=== PATIENT | female | born 1940 | race Caucasian/White ===

== ENCOUNTER 2016-05-23 10:58 | Outpatient (CLI) | payer MEDICARE, OTHER | END 2016-05-23 10:59 | disposition home or self-care (01) | DX: M25.552 Pain in left hip (principal); M16.0 Bilateral primary osteoarthritis of hip ==

== ENCOUNTER 2016-12-12 15:20 | Outpatient (CLI) | payer MEDICARE, OTHER ==
[2016-12-12 14:10] LABS: BASOPHILS % (AUTO) 0.7 %; EOSINOPHILS # (AUTO) 0.1 10^3/uL (0.0-0.7); EOSINOPHILS % (AUTO) 1.3 %; HCT - HEMATOCRIT 42.6 % (37.0-47.0); HGB - HEMOGLOBIN 14.3 g/dL (12.0-16.0); LYMPHOCYTES % (AUTO) 23.4 %; MEAN CORPUSCULAR HEMOGLOBIN 30.2 pg (27.0-31.0); MEAN CORPUSCULAR HGB CONC 33.5 g/dL (32.0-36.0); MEAN CORPUSCULAR VOLUME 90.2 fL (81.0-99.0); MEAN PLATELET VOLUME 9.8 fL (7.9-10.8); MONOCYTES # (AUTO) 0.4 10^3/uL (0.0-1.0); MONOCYTES % (AUTO) 8.9 %; NEUTROPHILS # (AUTO) 2.7 10^3/uL (1.5-6.6); NEUTROPHILS % (AUTO) 65.7 %; RED BLOOD COUNT 4.73 10^6/uL (4.20-5.40); RED CELL DISTRIBUTION WIDTH 13.7 % (12.0-15.0); UNCORRECTED WHITE BLOOD COUNT 4.1 x10^3/uL; WHITE BLOOD COUNT 4.1 x10^3/uL (4.8-10.8)
[2016-12-12 14:51] LABS: ALBUMIN/GLOBULIN RATIO 1.7 (1.0-2.2); BILIRUBIN,TOTAL 0.6 mg/dL (0.2-1.0); BUN - BLOOD UREA NITROGEN 12 mg/dL (6-20); CALCIUM 8.8 mg/dL (8.5-10.3); CARBON DIOXIDE - CO2 31 mmol/L (21-32); CHLORIDE 100 mmol/L (101-111); CHOL/HDL RATIO 3.1 (<4.4); CHOLESTEROL 238 mg/dL; CREATININE 0.7 mg/dL (0.4-1.0); GFR - MDRD 82 (>89); GLUCOSE 106 mg/dL (70-100); HDL CHOLESTEROL 76 mg/dL; LDL/HDL RATIO 1.9 (<4.4); POTASSIUM 3.8 mmol/L (3.5-5.0); SODIUM 137 mmol/L (135-145); TOTAL PROTEIN 6.7 g/dL (6.7-8.2); TRIGLYCERIDES 76 mg/dL; VLDL CHOLESTEROL 15 mg/dL
== END 2016-12-12 15:21 | disposition home or self-care (01) ==
LOC: LAB.WCP 15:20
PROVIDERS: ATTEND Family Medicine
DX: E78.5 Hyperlipidemia, unspecified (principal)
CPT/HCPCS: 36415; 80053; 80061; 85025

== ENCOUNTER 2016-12-17 10:34 | Outpatient (CLI) | payer MEDICARE, OTHER ==
--- NOTE | 2016-12-17 15:02 | DEXA Report ---
DEXA SCAN: 12/17/2016 CLINICAL INDICATION: Osteoporosis. TECHNIQUE: Dual energy x-ray absorptiometry (DXA) was performed on a [employer] system. Regions measured are the AP spine, femoral neck, and, if needed, forearm. COMPARISON: None. In accordance with the International Society for Clinical Densitometry (ISCD) guidelines, data from previous exams may be reanalyzed using current recommendations and techniques. This is done to allow a more accurate basis for comparison with the current study. FINDINGS The data for the lumbar spine is as follows: REGION BMD (g/cm/cm) T-SCORE Z-SCORE L1 0.744 -3.2 -0.7 L2 0.826 -3.1 -0.6 L3 0.880 -2.7 -0.2 L4 0.818 -3.2 -0.7 TOTAL 0.847 -2.9 -0.5 NOTE: All evaluable vertebrae are used for classification. The data for the hip is as follows: REGION BMD (g/cm/cm) T-SCORE Z-SCORE Neck 0.651 -2.8 -0.4 TOTAL 0.608 -3.2 -0.9 IMPRESSION: THE WHO CLASSIFICATION BASED ON THE INTERNATIONAL REFERENCE STANDARD IS OSTEOPOROSIS. THE FRACTURE RISK IS HIGH. RECOMMENDATION: Patients with diagnosis of osteoporosis or osteopenia should have regular bone mineral density assessment. For those eligible for Medicare, routine testing is allowed once every 2 years. Testing frequency can be increased for patients who have rapidly progressing disease or for those who are receiving medical therapy to restore bone mass. COMMENT: World Health Organization (WHO) definitions for osteoporosis and osteopenia: NORMAL BMD: T-score at -1.0 or higher, fracture risk is low. OSTEOPENIA BMD: T-score between -1.0 and -2.5, fracture risk is increased. OSTEOPOROSIS BMD: T-score at -2.5 or lower, fracture risk high. National Osteoporosis Foundation recommends: 1. Obtain adequate dietary calcium (at least 1200 mg per day) and vitamin D (400 -800 international units per day). 2. Participate, as appropriate, in regular weightbearing and muscle- strengthening exercise. 3. Avoid tobacco use and reduce alcohol and caffeine intake. 4. For more detailed information see the website at www.NOF.org. MTDD
== END 2016-12-17 10:35 | disposition home or self-care (01) ==
LOC: DI 10:34
PROVIDERS: ATTEND Family Medicine
DX: M81.0 Age-related osteoporosis without current pathological fracture (principal)
CPT/HCPCS: 77080

== ENCOUNTER 2016-12-17 10:34 | Outpatient (CLI) | payer MEDICARE, OTHER ==
--- NOTE | 2016-12-18 16:53 | Mammography Report ---
DIGITAL SCREENING MAMMOGRAM: 12/17/2016 CLINICAL INDICATION: A 76-year-old for screening. COMPARISON: 11/2015, 11/2014, 11/2013, 11/2012, 09/2011, 09/2010, 09/2009. TECHNIQUE: Routine CC and MLO projections as well as bilateral laterally exaggerated craniocaudal vi ews were obtained of the breasts. The breasts again demonstrate scattered fibroglandular densities bilaterally. Coarse and punctate, t ypically benign calcifications are present. No suspicious masses, clustered microcalcifications, or regions of architectural distortion are identified. IMPRESSION: BENIGN FINDINGS. RECOMMENDATION: ROUTINE ANNUAL SCREENING UNLESS OTHERWISE CLINICALLY INDICATED. BIRADS CATEGORY: 2, BENIGN FINDINGS. STANDARD QUALIFYING STATEMENTS 1. This examination was reviewed with the aid of Computed-Aided Detection (CAD). 2. A negative or benign imaging report should not delay biopsy if clinically suspicious findings are present. Consider surgical consultation if warranted. More than 5% of cancers are not identified b y imaging. 3. Dense breasts may obscure an underlying neoplasm. JOB #: [id number] EXT JOB #:[id number]
== END 2016-12-17 10:35 | disposition home or self-care (01) ==
LOC: DI 10:34
PROVIDERS: ATTEND Family Medicine
DX: Z12.31 Encounter for screening mammogram for malignant neoplasm of breast (principal)
CPT/HCPCS: 77067

== ENCOUNTER 2017-10-12 08:00 | Outpatient (CLI) | payer MEDICARE, OTHER ==
[2017-10-12 13:28] LABS: BASOPHILS % (AUTO) 0.7 %; EOSINOPHILS # (AUTO) 0.1 10^3/uL (0.0-0.7); EOSINOPHILS % (AUTO) 1.9 %; HGB - HEMOGLOBIN 13.5 g/dL (12.0-16.0); MEAN CORPUSCULAR HEMOGLOBIN 30.8 pg (27.0-31.0); MEAN CORPUSCULAR HGB CONC 33.7 g/dL (32.0-36.0); MEAN CORPUSCULAR VOLUME 91.3 fL (81.0-99.0); MEAN PLATELET VOLUME 10.1 fL (7.9-10.8); MONOCYTES # (AUTO) 0.4 10^3/uL (0.0-1.0); MONOCYTES % (AUTO) 9.7 %; NEUTROPHILS # (AUTO) 2.9 10^3/uL (1.5-6.6); NEUTROPHILS % (AUTO) 64.7 %; PLT - PLATELET COUNT 274 10^3/uL (130-450); RED BLOOD COUNT 4.38 10^6/uL (4.20-5.40); RED CELL DISTRIBUTION WIDTH 13.5 % (12.0-15.0); WHITE BLOOD COUNT 4.5 x10^3/uL (4.8-10.8)
[2017-10-12 13:41] LABS: ALBUMIN/GLOBULIN RATIO 1.5 (1.0-2.2); ALKALINE PHOSPHATASE 81 IU/L (42-121); ALT ALANINE AMINOTRANSFERASE 18 IU/L (10-60); AST ASPARTATE AMINOTRANSFERASE 21 IU/L (10-42); BILIRUBIN,TOTAL 0.7 mg/dL (0.2-1.0); BUN - BLOOD UREA NITROGEN 18 mg/dL (6-20); CALCIUM 9.7 mg/dL (8.5-10.3); CARBON DIOXIDE - CO2 32 mmol/L (21-32); CHLORIDE 97 mmol/L (101-111); CHOLESTEROL 241 mg/dL; CREATININE 0.8 mg/dL (0.4-1.0); GFR - MDRD 70 (>89); GLUCOSE 94 mg/dL (70-100); HDL CHOLESTEROL 80 mg/dL; LDL CHOLESTEROL,CALCULATED 147 mg/dL; LDL/HDL RATIO 1.8 (<4.4); SODIUM 139 mmol/L (135-145); TOTAL PROTEIN 6.7 g/dL (6.7-8.2); VLDL CHOLESTEROL 14 mg/dL
== END 2017-10-12 08:01 | disposition home or self-care (01) ==
LOC: LAB.WCP 08:00
PROVIDERS: ATTEND Family Medicine
DX: E78.5 Hyperlipidemia, unspecified (principal); R03.0 Elevated blood-pressure reading, without diagnosis of hypertension
CPT/HCPCS: 36415; 80053; 80061; 83721; 85025

== ENCOUNTER 2017-12-18 11:55 | Outpatient (CLI) | payer MEDICARE, OTHER ==
--- NOTE | 2017-12-21 10:44 | Mammography Report ---
Reason: SCREENING MAMMO Procedure Date: 12/18/2017 Accession Number: [id number] / [id number] Procedure: MGN - Screening Mammo Dig Bilat CPT Code: FULL RESULT: EXAM: Screening Mammo Dig Bilat DATE: 12/18/2017 12:20 PM CLINICAL HISTORY: 77-year-old female presents for screening mammogram. TECHNIQUE: Bilateral CC, laterally exaggerated CC, MLO views were obtained. COMPARISON: 12/17/2016, 12/14/2015, 12/06/2014, 12/02/2013. FINDINGS: The breasts demonstrate heterogeneously dense fibroglandular parenchyma bilaterally. Typically benign vascular calcifications are again seen bilaterally. Large rodlike typically benign calcifications in the left breast of increased. The left MLO view is technically insufficient as the inferior breast fold is excluded and the nipple is not in profile. This view should be repeated. No suspicious masses, clustered microcalcifications, or regions of architectural distortion are identified. IMPRESSION: Incomplete examination RECOMMENDATION: Additional evaluation as above. BIRADS CATEGORY 0: Incomplete examination STANDARD QUALIFYING STATEMENTS: 1. This examination was not reviewed with the aid of Computer-Aided Detection (CAD). 2. A negative or benign imaging report should not delay biopsy if clinically suspicious findings are present. Consider surgical consultation if warrented. More than 5% of cancers are not identified by imaging. 3. Dense breasts may obscure an underlying neoplasm. 4. This examination was reviewed without the aid of 3D breast imaging (tomosynthesis).
== END 2017-12-18 11:56 | disposition home or self-care (01) ==
LOC: DI.N 11:55
DX: Z12.31 Encounter for screening mammogram for malignant neoplasm of breast (principal); R92.8 Other abnormal and inconclusive findings on diagnostic imaging of breast
CPT/HCPCS: 77067

== ENCOUNTER 2017-12-28 12:45 | Outpatient (CLI) | payer MEDICARE, OTHER | END 2017-12-28 12:46 | disposition home or self-care (01) | LOC: DI 12:45 | DX: Z12.31 Encounter for screening mammogram for malignant neoplasm of breast (principal) | CPT/HCPCS: 77067 ==

== ENCOUNTER 2018-04-23 08:00 | Outpatient (CLI) | payer MEDICARE, OTHER ==
[2018-04-23 13:56] LABS: BASOPHILS % (AUTO) 0.6 %; EOSINOPHILS # (AUTO) 0.1 10^3/uL (0.0-0.7); EOSINOPHILS % (AUTO) 3.2 %; HGB - HEMOGLOBIN 13.6 g/dL (12.0-16.0); LYMPHOCYTES # (AUTO) 0.8 10^3/uL (1.5-3.5); LYMPHOCYTES % (AUTO) 18.5 %; MEAN CORPUSCULAR HGB CONC 34.1 g/dL (32.0-36.0); MEAN PLATELET VOLUME 10.4 fL (7.9-10.8); MONOCYTES # (AUTO) 0.5 10^3/uL (0.0-1.0); MONOCYTES % (AUTO) 10.4 %; NEUTROPHILS # (AUTO) 3.1 10^3/uL (1.5-6.6); NEUTROPHILS % (AUTO) 67.3 %; PLT - PLATELET COUNT 238 10^3/uL (130-450); RED CELL DISTRIBUTION WIDTH 13.9 % (12.0-15.0); WHITE BLOOD COUNT 4.6 x10^3/uL (4.8-10.8)
[2018-04-23 14:08] LABS: ALBUMIN 3.9 g/dL (3.2-5.5); ALBUMIN/GLOBULIN RATIO 1.6 (1.0-2.2); ALKALINE PHOSPHATASE 70 IU/L (42-121); ALT ALANINE AMINOTRANSFERASE 19 IU/L (10-60); AST ASPARTATE AMINOTRANSFERASE 21 IU/L (10-42); BILIRUBIN,TOTAL 0.5 mg/dL (0.2-1.0); BUN - BLOOD UREA NITROGEN 18 mg/dL (6-20); CALCIUM 9.4 mg/dL (8.5-10.3); CARBON DIOXIDE - CO2 29 mmol/L (21-32); CHLORIDE 96 mmol/L (101-111); CHOL/HDL RATIO 2.9 (<4.4); CHOLESTEROL 226 mg/dL; CREATININE 0.8 mg/dL (0.4-1.0); GFR - MDRD 70 (>89); GLUCOSE 92 mg/dL (70-100); HDL CHOLESTEROL 79 mg/dL; LDL CHOLESTEROL,CALCULATED 133 mg/dL; LDL/HDL RATIO 1.7 (<4.4); SODIUM 137 mmol/L (135-145); TOTAL PROTEIN 6.4 g/dL (6.7-8.2); VLDL CHOLESTEROL 14 mg/dL
== END 2018-04-23 23:59 | disposition home or self-care (01) ==
LOC: LAB.WCP 08:00
PROVIDERS: ATTEND Family Medicine
DX: E78.5 Hyperlipidemia, unspecified (principal); R03.0 Elevated blood-pressure reading, without diagnosis of hypertension
CPT/HCPCS: 36415; 80053; 80061; 83721; 85025

== ENCOUNTER 2018-07-13 16:25 | Outpatient (CLI) | payer MEDICARE, OTHER ==
--- NOTE | 2018-07-13 21:49 | Ultrasound Report ---
Reason: RAYNAUD'S SYNDROME Procedure Date: 07/13/2018 Accession Number: [id number] / [id number] Procedure: US - Ankle Brachial Index CPT Code: FULL RESULT: EXAM: BILATERAL ANKLE/BRACHIAL INDEX EXAM DATE: 07/13/2018 05:14 PM. CLINICAL HISTORY: RAYNAUD SYNDROME. COMPARISON: None. TECHNIQUE: A blood pressure cuff and pulse volume recording Doppler ultrasound was used to evaluate the arterial pressures in the arms and ankle. No images were acquired. FINDINGS: Brachial pressure: Right brachial artery: 187 mmHg, index 1.00 Left brachial artery: 170 mmHg, index 1.00 Right ankle pressures: 189 mmHg, index 1.0 Left ankle pressures: 180 mmHg, index 1.06 IMPRESSION: 1. Right ankle/brachial index: 1.0. 2. Left ankle/brachial index: 1.06. ANKLE/BRACHIAL INDEX REFERENCE STANDARDS 1.0-1.4: Normal 0.90-0.99: Borderline < 0.9: Abnormal RADIA
== END 2018-07-13 16:26 | disposition home or self-care (01) ==
LOC: DI 16:25
PROVIDERS: ATTEND Family Medicine
DX: I73.00 Raynaud's syndrome without gangrene (principal)
CPT/HCPCS: 93922

== ENCOUNTER 2018-08-21 14:36 | Outpatient (CLI) | payer MEDICARE, OTHER ==
--- NOTE | 2018-08-23 09:58 | Ultrasound Report ---
Reason: PERIPHERAL VASCULAR DISEASE,RAYNAUDS SYNDROME Procedure Date: 08/21/2018 Accession Number: [id number] / [id number] Procedure: US - Duplex Upr Ext Arterial Bilat CPT Code: FULL RESULT: EXAM: BILATERAL UPPER EXTREMITY ARTERIAL ULTRASOUND STUDY, GRAYSCALE, COLOR DOPPLER AND SPECTRAL DOPPLER. EXAM DATE: 08/21/2018 04:01 PM. CLINICAL HISTORY: Peripheral vascular disease, Raynaud's syndrome. COMPARISON: None. TECHNIQUE: Grayscale, color Doppler and spectral Doppler examination of the bilateral upper extremity arterial systems was performed. Please note that images 38 through 51 I labeled right-sided but most likely represent the left arm brachial, radial and ulnar arteries. The technologist worksheet indicates that the obtained velocities for these vessels corresponds to the velocities seen in the left arm and images immediately preceding are of the left side. The beginning of the study clearly demonstrates the separately obtained right-sided arterial system images of the same vessels with velocities corresponding to the technologist worksheet section identified as the right side. FINDINGS: Based on the assumptions stated in the technique section, the arterial system in both arms demonstrates preserved brisk systolic arterial upstrokes throughout every sampled vessel per spectral Doppler. Every sampled vessel is patent by color Doppler. The following peak systolic velocities were obtained in centimeters per second with location as identified on the technologist worksheet, correlating to images as described above: Right Upper Extremity Velocities: Innominate prox: 65 cm/s. Subclavian prox: 67 cm/s. Subclavian mid: 98 cm/s. Subclavian distal: 116 cm/s. Axillary: 50 cm/s. Brachial prox: 85 cm/s. Brachial dist: 125 cm/s. Radial prox: 50 cm/s. Radial distal: 54 cm/s. Ulnar prox: 39 cm/s Ulnar dist: 20 cm/s. Left Upper Extremity Velocities: Innominate prox: 49 cm/s. Subclavian prox: 89 cm/s. Subclavian mid: 71 cm/s. Subclavian distal: 46 cm/s. Axillary: 14 cm/s. Brachial prox: 105 cm/s. Brachial dist: 81 cm/s. Radial prox: 50 cm/s. Radial distal: 38 cm/s. Ulnar prox: 65 cm/s Ulnar dist: 67 cm/s. IMPRESSION: Normal patency and the appearance of waveforms in sampled bilateral upper extremity arteries. RADIA
== END 2018-08-21 14:37 | disposition home or self-care (01) ==
LOC: DI 14:36
PROVIDERS: ATTEND Family Medicine
DX: I73.00 Raynaud's syndrome without gangrene (principal); I73.9 Peripheral vascular disease, unspecified
CPT/HCPCS: 93930

== ENCOUNTER 2018-12-21 12:25 | Outpatient (CLI) | payer MEDICARE, OTHER ==
--- NOTE | 2018-12-23 07:53 | DEXA Report ---
Reason: OSTEOPOROSIS Procedure Date: 12/21/2018 Accession Number: [id number] / [id number] Procedure: DEX - Dexa Spine and/or Hip CPT Code: FULL RESULT: EXAM: Dexa Spine and/or Hip DATE: 12/21/2018 1:22 PM CLINICAL HISTORY: OSTEOPOROSIS TECHNIQUE: Dual energy x-ray absorptiometry (DXA) was performed on a [employer] System. Regions measured are the AP Spine, femoral neck, and if needed forearm. COMPARISON: 12/17/2016 In accordance with the International Society for Clinical Densitometry (ISCD) guidelines, data from previous exams may be reanalyzed using current recommendations and techniques. This is done to allow a more accurate basis for comparison with the current study. FINDINGS: The data for the lumbar spine is as follows: BMD (g/cm/cm) T-SCORE Z-SCORE REGION L1 0.771 -3.0 -0.4 L2 0.851 -2.9 -0.3 L3 0.993 -1.7 0.8 L4 1.046 -1.3 1.3 TOTAL 0.942 -1.9 0.7 NOTE: All evaluable vertebrae are used for classification The data for the hip is as follows: BMD (g/cm/cm) T-SCORE Z-SCORE REGION Neck 0.627 -3.0 -0.5 TOTAL 0.588 -3.3 -0.9 NOTE: The femoral neck or total proximal femur, whichever is lowest, is used for classification. DXA RESULTS SUMMARY: Spine SCAN DATE AGE BMD CHANGE VS CHANGE VS PREVIOUS PREVIOUS % 12[age]21/2018 [age] 0[age]942 0.130* 16.0* 12/17/2016 [age] 0[age]812 * Denotes significant change at the 95% confidence level. Denotes dissimilar scan types or analysis methods. DXA RESULTS SUMMARY: Hip SCAN DATE AGE BMD CHANGE VS CHANGE VS PREVIOUS PREVIOUS % 12[age]21/2018 [age] 0.588 -0.020 -3.3 12/17/2016 [age] 0.608 * Denotes significant change at the 95% confidence level. Denotes dissimilar scan types or analysis methods. IMPRESSION: THE WHO CLASSIFICATION BASED ON THE INTERNATIONAL REFERENCE STANDARD IS OSTEOPOROSIS. THE FRACTURE RISK IS HIGH. RECOMMENDATION: Patients with diagnosis of osteoporosis or osteopenia should have regular bone mineral density assessment. For those eligible for Medicare, routine testing is allowed once every 2 years. Testing frequency can be increased for patients who have rapidly progressing disease or for those who are receiving medical therapy to restore bone mass. COMMENT: World Health Organization (WHO) definitions for osteoporosis and osteopenia: NORMAL BMD: T-score at -1.0 or higher, fracture risk is low OSTEOPENIA BMD: T-score between -1.0 and -2.5, fracture risk is increased. OSTEOPOROSIS BMD: T-score at -2.5 or lower, fracture risk is high. National Osteoporosis Foundation recommends: 1. Obtain adequate dietary calcium (at least 1200 mg per day) and vitamin D (400-800 international units per day). 2. Participate, as appropriate, in regular weightbearing and muscle-strengthening exercise. 3. Avoid tobacco use and reduce alcohol and caffeine intake. 4. For more detailed information see the website at www.NOF.org.
== END 2018-12-21 12:26 | disposition home or self-care (01) ==
LOC: DI 12:25
PROVIDERS: ATTEND Family Medicine
DX: M81.0 Age-related osteoporosis without current pathological fracture (principal)
CPT/HCPCS: 77080

== ENCOUNTER 2019-01-07 08:04 | Outpatient (CLI) | payer MEDICARE, OTHER ==
--- NOTE | 2019-01-07 09:39 | Mammography Report ---
Reason: ROUTINE MAMMO Procedure Date: 01/07/2019 Accession Number: [id number] / [id number] Procedure: MGN - Screening Mammo Dig Bilat CPT Code: FULL RESULT: EXAM: Screening Mammo Dig Bilat DATE: 01/07/2019 8:41 AM CLINICAL HISTORY: Screening encounter. TECHNIQUE: (B) - Bilateral CC and MLO views were obtained. COMPARISON: 12/28/2017 through 11/25/2012. PARENCHYMAL PATTERN: (A) - The breast(s) demonstrate(s) scattered fibroglandular densities. FINDINGS: There are coarse typically benign calcifications. There are no suspicious masses, calcifications, or areas of distortion. IMPRESSION: Benign findings. BI-RADS category 2. RECOMMENDATION: (ANNUAL) - Recommend routine annual screening mammography. BI-RADS CATEGORY: (2) - Benign Findings. STANDARD QUALIFYING STATEMENTS: 1. This examination was not reviewed with the aid of Computer-Aided Detection (CAD). 2. A negative or benign imaging report should not preclude biopsy if clinically suspicious findings are present. 3. Dense breasts may obscure an underlying neoplasm. 4. This examination was reviewed without the aid of 3D breast imaging (tomosynthesis).
== END 2019-01-07 08:05 | disposition home or self-care (01) ==
LOC: DI.N 08:04
DX: Z12.31 Encounter for screening mammogram for malignant neoplasm of breast (principal)
CPT/HCPCS: 77067

== ENCOUNTER → 2020-01-13 | Outpatient (CLI) | payer MEDICARE, OTHER ==
[2020-01-13 11:40] LABS: BASOPHILS % (AUTO) 0.6 %; EOSINOPHILS # (AUTO) 0.1 10^3/uL (0.0-0.7); EOSINOPHILS % (AUTO) 1.2 %; HGB - HEMOGLOBIN 13.7 g/dL (12.0-16.0); LYMPHOCYTES % (AUTO) 19.5 %; MEAN CORPUSCULAR HEMOGLOBIN 30.3 pg (27.0-31.0); MEAN CORPUSCULAR HGB CONC 31.8 g/dL (32.0-36.0); MEAN CORPUSCULAR VOLUME 95.4 fL (81.0-99.0); MEAN PLATELET VOLUME 11.3 fL (7.9-10.8); MONOCYTES # (AUTO) 0.5 10^3/uL (0.0-1.0); MONOCYTES % (AUTO) 9.9 %; NEUTROPHILS # (AUTO) 3.3 10^3/uL (1.5-6.6); NEUTROPHILS % (AUTO) 68.6 %; PLT - PLATELET COUNT 269 10^3/uL (130-450); RED BLOOD COUNT 4.52 10^6/uL (4.20-5.40); RED CELL DISTRIBUTION WIDTH 13.3 % (12.0-15.0); WHITE BLOOD COUNT 4.9 x10^3/uL (4.8-10.8)
[2020-01-13 12:09] LABS: ALBUMIN 4.2 g/dL (3.2-5.5); ALBUMIN/GLOBULIN RATIO 1.7 (1.0-2.2); ALKALINE PHOSPHATASE 46 IU/L (42-121); ALT ALANINE AMINOTRANSFERASE 25 IU/L (10-60); AST ASPARTATE AMINOTRANSFERASE 27 IU/L (10-42); BILIRUBIN,TOTAL 0.6 mg/dL (0.2-1.0); BUN - BLOOD UREA NITROGEN 18 mg/dL (6-20); CALCIUM 9.1 mg/dL (8.5-10.3); CARBON DIOXIDE - CO2 30 mmol/L (21-32); CHLORIDE 99 mmol/L (101-111); CHOL/HDL RATIO 2.3 (<4.4); CHOLESTEROL 232 mg/dL; CREATININE 0.8 mg/dL (0.4-1.0); GLUCOSE 134 mg/dL (70-100); HDL CHOLESTEROL 99 mg/dL; SODIUM 137 mmol/L (135-145); TOTAL PROTEIN 6.7 g/dL (6.7-8.2)
== END ==
LOC: LAB.WCP 08:00
PROVIDERS: ATTEND Family Medicine
DX: I10 Essential (primary) hypertension (principal); E78.5 Hyperlipidemia, unspecified
CPT/HCPCS: 36415; 80053; 80061; 83721; 85025

== ENCOUNTER 2020-01-30 10:49 | Outpatient (CLI) | payer MEDICARE, OTHER ==
--- NOTE | 2020-02-01 13:53 | Mammography Report ---
BILATERAL DIGITAL SCREENING MAMMOGRAM 3D/2D: 01/30/2020 CLINICAL: Routine screening. Comparison is made to exams dated: 01/07/2019 mammogram, 12/28/2017 mammogram, 12/18/2017 mammogram, mammogram, 12/14/2015 mammogram, and 12/06/2014 mammogram - [facility]. The re are scattered fibroglandular elements in both breasts. No significant masses, calcifications, or other findings are seen in either breast. There has been no significant interval change. IMPRESSION: NEGATIVE There is no mammographic evidence of malignancy. A 1 year screening mammogram is recommended. This exam was interpreted at Station ID: [id number]. NOTE: For mammograms, a report in lay terms will be sent to the patient. Approximately 15% of breast malignancies will not be visualized mammographically. In the management of a palpable breast mass, a negative mammogram must not discourage biopsy of a clinically suspicious lesion. Electronically Signed By: Maxime parikh/bryson:01/31/2020 16:42:53 ACR BI-RADS Category 1: Negative 3341F PARENCHYMAL PATTERN: (A) - The breast(s) demonstrate(s) scattered fibroglandular densities. BI-RADS CATEGORY: (1) - 1 RECOMMENDATION: (ANNUAL) - Recommend routine annual screening mammography. [id number] 1 year screening LATERALITY: (B)
== END 2020-01-30 10:50 | disposition home or self-care (01) ==
LOC: DI.N 10:49
DX: Z12.31 Encounter for screening mammogram for malignant neoplasm of breast (principal)
CPT/HCPCS: 77063; 77067

== ENCOUNTER 2020-08-29 09:00 | Outpatient (CLI) | payer MEDICARE, OTHER ==
[2020-08-29 11:53] LABS: BASOPHILS % (AUTO) 0.7 %; EOSINOPHILS # (AUTO) 0.1 10^3/uL (0.0-0.7); EOSINOPHILS % (AUTO) 1.9 %; HCT - HEMATOCRIT 42.9 % (37.0-47.0); LYMPHOCYTES % (AUTO) 18.1 %; MEAN CORPUSCULAR HEMOGLOBIN 31.3 pg (27.0-31.0); MEAN CORPUSCULAR HGB CONC 32.6 g/dL (32.0-36.0); MEAN PLATELET VOLUME 11.5 fL (7.9-10.8); MONOCYTES # (AUTO) 0.6 10^3/uL (0.0-1.0); NEUTROPHILS # (AUTO) 3.7 10^3/uL (1.5-6.6); NEUTROPHILS % (AUTO) 68.1 %; PLT - PLATELET COUNT 253 10^3/uL (130-450); RED BLOOD COUNT 4.47 10^6/uL (4.20-5.40); WHITE BLOOD COUNT 5.4 x10^3/uL (4.8-10.8)
[2020-08-29 12:09] LABS: ALBUMIN 4.2 g/dL (3.2-5.5); ALBUMIN/GLOBULIN RATIO 1.6 (1.0-2.2); ALKALINE PHOSPHATASE 48 IU/L (42-121); ALT ALANINE AMINOTRANSFERASE 26 IU/L (10-60); AST ASPARTATE AMINOTRANSFERASE 24 IU/L (10-42); BILIRUBIN,TOTAL 0.5 mg/dL (0.2-1.0); BUN - BLOOD UREA NITROGEN 18 mg/dL (6-20); CARBON DIOXIDE - CO2 33 mmol/L (21-32); CHLORIDE 99 mmol/L (101-111); CHOL/HDL RATIO 2.9 (<4.4); CHOLESTEROL 260 mg/dL; CREATININE 0.8 mg/dL (0.4-1.0); GFR - MDRD 69 (>89); GLUCOSE 108 mg/dL (70-100); HDL CHOLESTEROL 89 mg/dL; LDL CHOLESTEROL,CALCULATED 153 mg/dL; LDL/HDL RATIO 1.7 (<4.4); POTASSIUM 4.1 mmol/L (3.5-5.0); SODIUM 143 mmol/L (135-145); TOTAL PROTEIN 6.8 g/dL (6.7-8.2); TRIGLYCERIDES 89 mg/dL; VLDL CHOLESTEROL 18 mg/dL
== END 2020-08-29 23:59 | disposition home or self-care (01) ==
LOC: LAB.WCP 09:00
PROVIDERS: ATTEND Family Medicine
DX: M81.0 Age-related osteoporosis without current pathological fracture (principal); E78.5 Hyperlipidemia, unspecified
CPT/HCPCS: 36415; 80053; 80061; 83721; 85025

== ENCOUNTER 2021-02-08 09:50 | Outpatient (CLI) | payer MEDICARE, OTHER ==
--- NOTE | 2021-02-11 15:26 | Mammography Report ---
BILATERAL DIGITAL SCREENING MAMMOGRAM 3D/2D: 02/08/2021 CLINICAL: Routine screening. Comparison is made to exams dated: 01/30/2020 mammogram, 01/07/2019 mammogram, and 12/18/2017 mammogra m - [facility]. There are scattered fibroglandular elements in both breasts. No significant masses, calcifications, or other findings are seen in either breast. There has been no significant interval change. IMPRESSION: NEGATIVE There is no mammographic evidence of malignancy. A 1 year screening mammogram is recommended. This exam was interpreted at Station ID: [id number]. NOTE: For mammograms, a report in lay terms will be sent to the patient. Approximately 15% of breast malignancies will not be visualized mammographically. In the management of a palpable breast mass, a negative mammogram must not discourage biopsy of a clinically suspicious lesion. Electronically Signed By: Herber Gallardo M.D. ar/penrad:02/08/2021 12:51:51 ACR BI-RADS Category 1: Negative 3341F PARENCHYMAL PATTERN: (A) - The breast(s) demonstrate(s) scattered fibroglandular densities. BI-RADS CATEGORY: (1) - 1 RECOMMENDATION: (ANNUAL) - Recommend routine annual screening mammography. [id number] 1 year screening LATERALITY: (B)
== END 2021-02-08 09:51 | disposition home or self-care (01) ==
LOC: DI 09:50
DX: Z12.31 Encounter for screening mammogram for malignant neoplasm of breast (principal)

== ENCOUNTER 2021-02-15 09:16 | Outpatient (CLI) | payer MEDICARE, OTHER ==
--- NOTE | 2021-02-15 09:53 | DEXA Report ---
PROCEDURE: Dexa Spine and/or Hip INDICATIONS: OSTEOPOROSIS TECHNIQUE: Dual energy x-ray absorptiometry (DXA) was performed on a [employer] System. Regions measur ed are the AP Spine, femoral neck, and if needed forearm. COMPARISON: December 21, 2018. FINDINGS: Lumbar Spine: Bone Mineral Density 0.994 g/cm/cm,T score -1.5, osteopenic Left Femoral Neck: Bone Mineral Density 0.676 g/cm/cm, T score -2.8, osteoporosis (T score greater or equal to -1.0: NORMAL) (T score from -1.1 to -2.4: OSTEOPENIA) (T score less than or equal to -2.5 to: OSTEOPOROSIS) Impression: Bone mineral density consistent with osteoporosis and increased fracture risk. Patients with diagnosis of osteoporosis or osteopenia should have regular bone mineral density assess ment. For those eligible for Medicare, routine testing is allowed once every 2 years. Testing frequ ency can be increased for patients who have rapidly progressing disease or for those who are receivin g medical therapy to restore bone mass. Reviewed by: Brian Yarbrough MD on 02/15/2021 9:52 AM PST Approved by: Brian Yarbrough MD on 02/15/2021 9:52 AM PST Station ID: [id number]
== END 2021-02-15 09:17 | disposition home or self-care (01) ==
LOC: DI 09:16
PROVIDERS: ATTEND Nurse Practitioner Family
DX: M81.0 Age-related osteoporosis without current pathological fracture (principal)

== ENCOUNTER 2021-08-30 11:17 | Outpatient (CLI) | payer MEDICARE, OTHER ==
[2021-08-30 18:20] LABS: BASOPHILS % (AUTO) 0.5 %; EOSINOPHILS # (AUTO) 0.1 10^3/uL (0.0-0.7); EOSINOPHILS % (AUTO) 0.9 %; HCT - HEMATOCRIT 42.4 % (37.0-47.0); HGB - HEMOGLOBIN 13.8 g/dL (12.0-16.0); LYMPHOCYTES # (AUTO) 0.9 10^3/uL (1.5-3.5); LYMPHOCYTES % (AUTO) 15.5 %; MEAN CORPUSCULAR HEMOGLOBIN 30.7 pg (27.0-31.0); MEAN CORPUSCULAR HGB CONC 32.5 g/dL (32.0-36.0); MEAN CORPUSCULAR VOLUME 94.2 fL (81.0-99.0); MEAN PLATELET VOLUME 11.9 fL (7.9-10.8); MONOCYTES # (AUTO) 0.5 10^3/uL (0.0-1.0); MONOCYTES % (AUTO) 8.4 %; NEUTROPHILS # (AUTO) 4.3 10^3/uL (1.5-6.6); NEUTROPHILS % (AUTO) 74.5 %; PLT - PLATELET COUNT 257 10^3/uL (130-450); RED CELL DISTRIBUTION WIDTH 13.5 % (12.0-15.0); WHITE BLOOD COUNT 5.8 x10^3/uL (4.8-10.8)
[2021-08-30 18:40] LABS: ALBUMIN 4.3 g/dL (3.2-5.5); ALBUMIN/GLOBULIN RATIO 1.7 (1.0-2.2); BILIRUBIN,TOTAL 0.4 mg/dL (0.2-1.0); CALCIUM 9.5 mg/dL (8.5-10.3); CREATININE 0.8 mg/dL (0.4-1.0); POTASSIUM 3.7 mmol/L (3.5-5.0); TOTAL PROTEIN 6.9 g/dL (6.7-8.2)
== END 2021-08-30 11:18 | disposition home or self-care (01) ==
LOC: LAB.N 11:17
PROVIDERS: ATTEND Family Medicine
DX: I10 Essential (primary) hypertension (principal)
CPT/HCPCS: 36415; 80053; 85025

== ENCOUNTER 2023-03-04 10:00 | Outpatient (CLI) | payer MEDICARE, OTHER ==
--- NOTE | 2023-03-05 10:19 | Mammography Report ---
BILATERAL DIGITAL SCREENING MAMMOGRAM 3D/2D: 03/04/2023 CLINICAL: Routine screening. Comparison is made to exams dated: 03/06/2022 mammogram, 02/08/2021 mammogram, 01/30/2020 mammogram, 01/07/2019 mammogram, 12/28/2017 mammogram, and 12/18/2017 mammogram - [facility]. There are scattered areas of fibroglandular density in both breasts (category b / 25%-50% glandular t issue). No significant masses, calcifications, or other findings are seen in either breast. There has been no significant interval change. IMPRESSION: NEGATIVE There is no mammographic evidence of malignancy. A 1 year screening mammogram is recommended. Based on the Tyrer Cuzick model (a risk assessment model) the patients lifetime risk is 0.6% and her 10 year risk is 0.0%. According to the ACR, ACS, and NCCN guidelines, an annual breast MRI exam yves g with mammogram is recommended if the patients lifetime risk is 20% or greater. This exam was interpreted at Station ID: [id number]. NOTE: For mammograms, a report in lay terms will be sent to the patient. Approximately 15% of breast malignancies will not be visualized mammographically. In the management of a palpable breast mass, a negative mammogram must not discourage biopsy of a clinically suspicious lesion. Electronically Signed By: Amaya Campa M.D., PH.D /bryson:03/04/2023 21:41:54 letter sent: No_Letter ACR BI-RADS Category 1: Negative 3341F PARENCHYMAL PATTERN: (A) - The breast(s) demonstrate(s) scattered fibroglandular densities. BI-RADS CATEGORY: (1) - 1 Mammogram [id number] 1 year screening LATERALITY: (B)
== END 2023-03-04 10:01 | disposition home or self-care (01) ==
LOC: DI.N 10:00
DX: Z12.31 Encounter for screening mammogram for malignant neoplasm of breast (principal); R92.323 Mammographic fibroglandular density, bilateral breasts

== ENCOUNTER 2023-03-27 12:12 | Outpatient (CLI) | payer MEDICARE, OTHER ==
--- NOTE | 2023-03-27 14:24 | DEXA Report ---
PROCEDURE: Dexa Spine and/or Hip INDICATIONS: OSTEOPOROSIS TECHNIQUE: Dual energy x-ray absorptiometry (DXA) was performed on a [employer] System. Regions measur ed are the AP Spine, femoral neck, and if needed forearm. COMPARISON: DEXA 02/15/2021 FINDINGS: Lumbar Spine: Bone Mineral Density 1.020 g/cm/cm,T score -1.3, compared to -1.5. Left Femoral Neck: Bone Mineral Density 0.636 g/cm/cm, T score -2.9, compared to -2.6. Left Hip: Bone Mineral Density 0.690 g/cm/cm,T score -2.5, compared to -2.8. (T score greater or equal to -1.0: NORMAL) (T score from -1.1 to -2.4: OSTEOPENIA) (T score less than or equal to -2.5 to: OSTEOPOROSIS) Impression: By WHO criteria, this patient has osteoporosis in the hip slightly progressive in the femoral neck an d slightly improved in the remaining portions. Mild osteopenia is present within the spine slightly i mproved. Patients with diagnosis of osteoporosis or osteopenia should have regular bone mineral density assess ment. For those eligible for Medicare, routine testing is allowed once every 2 years. Testing frequ ency can be increased for patients who have rapidly progressing disease or for those who are receivin g medical therapy to restore bone mass. Reviewed by: Melany Espino MD on 03/27/2023 2:23 PM PST Approved by: Melany Espino MD on 03/27/2023 2:23 PM PST Station ID: [id number]
== END 2023-03-27 12:13 | disposition home or self-care (01) ==
LOC: DI 12:12
PROVIDERS: ATTEND Physician Assistant
DX: M81.0 Age-related osteoporosis without current pathological fracture (principal)